=== PATIENT | male | born 1985 | race Hispanic/Latino ===

== ENCOUNTER 2020-07-09 21:07 | Emergency (ER) | payer SELFPAY ==
[~2020-07-09] VITALS: Ht 175.3 cm; Wt 89.9 kg
[2020-07-09 22:15] VITALS: BP 147/82
[2020-07-09] MEDS ORDERED: BACITRACIN ZINC 0.9GM TP ONE (22:30)
== END 2020-07-09 22:15 | disposition home or self-care (01) ==
LOC: FSED 21:58
DX: S50.02XA Contusion of left elbow, initial encounter (principal); S70.02XA Contusion of left hip, initial encounter; S61.411A Laceration without foreign body of right hand, initial encounter; W11.XXXA Fall on and from ladder, initial encounter
CPT/HCPCS: 99283